=== PATIENT | female | born 1955 | race Caucasian/White ===

== ENCOUNTER → 2024-08-01 | Outpatient (CLI) | payer MEDICARE, BC, SELFPAY ==
--- NOTE | 2024-08-01 13:00 | XR_ITS ---
Examination: Screening digital mammography, bilateral Computer aided detection 3-D breast Tomosynthesis, bilateral Date and time of exam: August 01, 2024 1305 hrs. Compared to mammograms dating to December 04, 2012 Indication: Screening Technique: Nonmagnified MLO, CC views of the breasts to been obtained, reconstructed from 3-D Tomosynthesis images. R2 computer aided detection program utilized for evaluation of suspicious masses and/or abnormal calcifications. 3-D Tomosynthesis images obtained. Findings: The breasts are heterogeneously dense, which may obscure small masses Benign calcifications Stable nodule 1:00 position right breast Stable nodule outer left breast Impression: BI-RADS Category 0: Incomplete: Need additional imaging evaluation Recommend bilateral breast sonography follow-up to confirm benign nodules right and left breast
--- NOTE | 2024-08-01 13:20 | XR_ITS ---
Examination: Bone densitometry Date and time of exam:August 01, 2024 1117 hours INDICATIONS: Hysterectomy age 47, family history, sister osteoporosis Technique: Lumbar spine and hip total bone mineralization values of an calculated. Peak reference and age match control results have been displayed. Findings: Lumbar spine total bone mineralization is0.920 gm/cm2. This is 1.2 standard deviations below peak reference. This is 0.9 standard deviations above age-matched controls. Hip total bone mineralization is 0.735 gm/cm2 This is 1.7 standard deviations below peak reference. This is 0.2 standard deviations below age-matched controls Impression: There is osteopenia based on lumbar spine measurements. There is osteopenia based on hip measurements Lumbar mineralization is decreased 14% compared with June 19, 2001 Hip mineralization is decreased 20% compared with June 19, 2001
== END | disposition home or self-care (01) ==
LOC: CDIM 12:59
PROVIDERS: Referring Provider Family Medicine; Visit Provider Family Medicine
DX: Z12.31 Encounter for screening mammogram for malignant neoplasm of breast (principal); R92.8 Other abnormal and inconclusive findings on diagnostic imaging of breast; M85.89 Other specified disorders of bone density and structure, multiple sites
CPT/HCPCS: 77063; 77067; 77080

== ENCOUNTER 2025-02-05 06:40 | Day surgery (SDC) | payer MEDICARE, BC, SELFPAY ==
[2025-02-04 14:12] VITALS: BMI 27.8
[2025-02-05] VITALS (12 sets, daily range): BP systolic 101–175; BP diastolic 65–98; PULSE 65–95; RESP 13–20; TEMP 36.2–36.7; O2SAT 92–98; BMI 27.4
[2025-02-05] MEDS: SODIUM CHLORIDE 0.9% 500 ML 500 ML 20 ML IV (07:48)
[2025-02-05] MEDS: fentaNYL CIT INJ 50 mCg/ML AMP 2ML IVP (07:53)
[2025-02-05] MEDS: MIDAZOLAM INJ 1 MG/ML VIAL 2 ML (ASD USE ONLY) 2 MG IVP (07:53)
== END 2025-02-05 08:55 | disposition home or self-care (01) ==
PROVIDERS: PCP Family Medicine; Referring Provider Internal Medicine Gastroenterology; Visit Provider Internal Medicine Gastroenterology
PROC: 0DBE8ZX Excision of Large Intestine, Via Natural or Artificial Opening Endoscopic, Diagnostic (ICD-10-PCS; CPT 45380; principal; 2025-02-05 07:30)
DX: K52.89 Other specified noninfective gastroenteritis and colitis (principal); K64.8 Other hemorrhoids; K57.30 Diverticulosis of large intestine without perforation or abscess without bleeding; K56.699 Other intestinal obstruction unspecified as to partial versus complete obstruction; I10 Essential (primary) hypertension
CPT/HCPCS: 45380; J2250; J3010; J7999

== ENCOUNTER → 2025-05-01 | Outpatient (CLI) | payer MEDICARE, BC, SELFPAY ==
--- NOTE | 2025-05-01 12:30 | XR_ITS ---
Examination: Breast ultrasound complete, bilateral Date and time of exam: May 01 0 25, 1220 hours INDICATIONS: Mammogram August 01, 2024 nodule 1 o'clock position right breast nodule outer left breast Breast sonography March 20, 2013 1:00 nodule right breast 13 mm Technique: Real-time grayscale ultrasonographic imaging bilateral breasts, including all 4 quadrants as well as nipple retroareolar and axillary regions. Findings: Sonographic images right breast No cystic or solid mass Sonographic images left breast No cystic or solid mass Left axillary mass without the typical chandler architecture of the lymph node, 10 x 5 x 9 mm IMPRESSION: Recommend 6-month follow-up left breast axillary sonography to document stability a small nodule in the left axilla
== END | disposition home or self-care (01) ==
LOC: CDIM 12:07
PROVIDERS: PCP Family Medicine; Referring Provider Family Medicine; Visit Provider Family Medicine
DX: N63.32 Unspecified lump in axillary tail of the left breast (principal); N63.31 Unspecified lump in axillary tail of the right breast
CPT/HCPCS: 76641